=== PATIENT | female | born 1945 | race Caucasian/White ===

== ENCOUNTER 2017-12-09 08:30 | Outpatient (RCR) | payer MEDICARE, SELFPAY ==
--- NOTE | 2017-09-28 11:05 | HP.PTEVAL_ITS ---
Patient's Visit Information AODLFO RUSSELL is a 72 year old F referred to Physical Therapy by Roni Jay DO with a diagnosis of SPINAL STENOSIS OF LUMBAR REGION. S/P HEMILAMINECTOMY L1L2 ROCK 09/02/17. Date of Evaluation: 09/28/17 Physical Therapist: Thais Hdez - Visit Plan Frequency: 2-3x /Week Duration: 4-6 Weeks Plan: POSTURE CORRECTION/STRENGTHENING, INSTRUCTION IN APPROPRIATE BODY MECHANICS AND ACTIVITY MODIFICATIONS. DLS STARTING WITH A NEUTRAL SPINE AND THEN PROGRESSING ROM TOLERATED STARTING Oct PER DR. JEFFERS ORDER. ROCK LE ROM, STRETCHING AND STRENGTHENING. HEP INSTRUCTION. 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 SITTING. COMMUTE IS ABOUT 45 MINUTES. TENTATIVE RTW DATE DEC 02 2017. Disability: NO. Present symptoms: RIGHT LOW BACK PAIN. RIGHT THIGH NUMBNESS. TINGLING IN RIGHT TOES. Present since: CHRONIC. Pain Scale: WORST 3/10, LEAST 2/10. Currently: 2/10. Commenced as a result of: NO APPARENT REASON. Symptoms at onset: LOW BACK. Worse: COUGHING, TRYING TO DO SOMETHING I SHOULDN'T. DOING DISHES. COOKING BREAKFAST. PROLONGED STANDING. TRYING TO MAKE BED. Better: ICING. TYLONOL. Disturbed sleep: NO. Previous history/Previous treatment: CHEYANNE'S X 3. NO PT. NO CHIRO. NO PRIOR SURGERY ON BACK - THIS IS THE FIRST ONE. Coughing/sneezing/straining: POSITIVE. Gait: PATIENT REPORTS SHE IS VERY APPREHENSIVE WALKING. STATES SHE WANTS TO WALK BY HERSELF BUT SHE CAN'T. STATES SHE IS NOT SECURE ENOUGH TO WALK ALONE. HAS A WALKER BUT BROUGHT CANE TODAY BECAUSE TRYING TO NOT USE THE WALKER. STATES HER THINKS SHE IS FAVORING HER RIGHT LEG. Difficulty initiating urinatin: NO. Accidents: NO. Unexplained weight loss: NO. Imaging: X-RAYS AT FOLLOW UP AND THEY SAID EVERYTHING LOOKS GOOD NOW. PMH: HTN. BREAST CANCER 1994 AND 2003. UTERINE CANCER 2011. HAS HAD CHEMO AND RADIATION TREATMENTS IN THE PAST. Recent major surgery: DOUBLE MASECTOMY, HYSTERECTOMY, LEFT TKR. OTHER: MOSTLY ONLY WEARING BRACE IF WALKING A LOT. - Objective Sitting/Standing Posture: POOR. Lordosis: REDUCED. Active Correction of posture: BETTER. Other Observations: INDEP GAIT INTO PT WITH A STRAIGHT CANE X APPROX 20 FEET WITH DIFFICULTY. DIFFICULTY TRANSITIONING FROM SIT TO STAND AND INITIATING GAIT AFTER SITTING. SHE WALKS WITH INCREASED TRUNK FLEX, DECREASED ROCK STRIDE LENGTH AND A MILD LIMP ON THE RIGHT LE. BROUGHT PATIENT THE 300 FEET TO THE TREATMENT ROOM BACK IN A WHEELCHAIR AT HER REQUEST. SHE ALSO REQUESTED A W/C RIDE BACK OUT TO THE LOBBY AFTER EVAL. Motor deficit: R LE WEKNESS > LLE. RIGHT HIP FLEX 3+/5, KNEE EXT 3-/5, KNEE FLEX 4/5 AND ANKLE DORSI FLEXION 5/5. LEFT HIP FLEX 4/5, KNEE EXT 4/5, KNEE FLEX 4/5, ANKLE DORSIFLEX 5/5. Sensory deficit: ROCK LE LIGHT TOUCH SENSATION INTACT AND SYMMETRICAL. ROM deficit: TIGHT ROCK LE HS'S AND HIP FLEXORS. PATIENT DOES NOT HAVE FULL RIGHT KNEE EXTENSION AND IS WALKING ON A BENT KNEE. STATES SHE NEEDS HER RIGHT KNEE REPLACED TOO. Dural Signs: NT. Lumbar mvmt loss: NT. Core strength: POOR. INCISION - VERY SMALL OPEN AREA AT THE VERY TOP OF INCISION WITH VERY MIN DRAINAGE. PATIENT IS AWARE AND STATES PA AT DR. JEFFERS OFFICE IS AWARE. THERE IS A LITTLE BIT OF REDNESS AROUND INCISION BUT OTHERWISE LOOKS GOOD. OTHER: PATIENT IS VERY PLEASANT AND COOOPERATIVE TO WORK WITH. FOLLOWS ALL COMMANDS WELL. - Goals Goal 1:: DECREASE C/O BACK AND RIGHT LE SX'S. Goal Time Frame: 4-6 Weeks Goal 2:: IMPROVE PERSONAL CARE, LIFTING, WALKING, STANDING, TRAVEL AND HOMEMAKING FUNCTION. Goal Time Frame: 4-6 Weeks Goal 3:: INSTRUCT IN PROPHYLAXIS Goal Time Frame: 4-6 Weeks - Rehabilitation Potential Rehabilitation Potential: Fair - Anticipated Interventions Patient/Client Instruction: Educate patient on: Condition, Plan of Care, Risk Factors, Benefits of Fitness Program For the Purpose of:: To improve self management Therapeutic Exercise to Include: Strength training, Body mechanics, Postural training, Flexibilty training, Gait and locomotor training, Active ROM, Dynamic Lumbar Stabilization For the Purpose of:: To decrease pain, To improve muscle performance and motor function, To increase tolerance to activity/condition/position, To improve ability of physical actions for home/community/work/leisure, To improve gait and locomotor functions Cryotherapy (ice pack, ice massage): Yes For the Purpose of:: To decrease pain, To decrease swelling/inflammation Thank you for the opportunity to evaluate your patient. For Medicare and Medicare HMO plans, please review the plan of care and approve it. It will need to be FAXED BACK to us at [phone] for Medicare purposes. Please let me know if there are questions or concerns regarding this plan of care. Physician Signature: Date:
--- NOTE | 2017-11-07 14:09 | HP.PTREVAL_ITS ---
CASE VOSS, It has been my pleasure to treat ADOLFO RUSSELL over the last 10 visits for SPINAL STENOSIS OF LUMBAR REGION. S/P HEMILAMINECTOMY L1L2 ROCK 09/02/17. Please see the progress note below for an update on the physical therapy plan of care! Subjective: PATIENT REPORTS SHE DOES NOT HAVE THE PAIN DOWN HER LEG ANYMORE BUT SOME RIGHT KNEE PAIN WHICH SHE RELATES TO ALMOST NEEDING A KNEE REPLACEMENT. THE PAIN SHE WAS HAVING IN HER BACK HAS LESSEND A LOT. PATIENT REPORTS HER WALKING IS BETTER BUT STILL USING THE CANE TO STEADY HERSELF AT TIMES OUTSIDE THE HOME. NOT USING CANE AT HOME. NO PROBLEM SLEEPING NOW. FOLLOW UP WITH DR. ROLLINS 11/10/17. PATIENT REPORTS SHE IS DOING HER HEP AND IT IS CHALLENGING. RIGHT LOW BACK PAIN UP TO 2-3 AT ITS WORST NOW AND ONLY IF SHE DOES TOO MUCH. STATES SHE GETS REALLY TIRED IF SHE TRIES TO DO TOO MUCH LIKE GROCERY SHOPPING ALONG WITH THERAPY. GROCERY SHOPPING AT [facility] IS STILL HARD DUE TO THE DISTANCE SHE HAS TO WALK AND TRYING TO GET STUFF FROM TOP AND BOTTOM SHELVES. Objective/Function: PATIENT HAS MADE GREAT PROGRESS TOWARD ALL PT GOALS BUT STILL HAS SIGNIFICANT CORE WEAKNESS. SHE IS A GOOD CANDIDATE TO CONTINUE FORMAL PT BASED ON THE PROGRESS SHE HAD MADE AND ROOM FOR FURHTER IMPROVEMENT. THIS PATIENT AMBULATES INDEP'LY INTO PT TODAY WITH VERY LITTLE DEPENDENCE ON A STRAIGHT CANE X > 300 FEET. SHE STILL WALKS WITH DECREASED CADANCE BUT THIS HAS IMPROVED. SHE DEMO'S INDEP GAIT WITHOUT THE CANE ALSO AND THIS DECREASES HER CADANCE FURTHER BUT SHE IS ABLE TO DO IT X > 50 FEET WITH ONLY MILD LIMPING ON BENT RIGHT KNEE AND NO C/O PAIN. Motor deficit: R LE WEKNESS > LLE. RIGHT HIP FLEX 4-/5, KNEE EXT 3-/5, KNEE FLEX 4/5 AND ANKLE DORSI FLEXION 5/5. LEFT HIP FLEX 4+/5, KNEE EXT 5/5, KNEE FLEX 5/5, ANKLE DORSIFLEX 5/5. Sensory deficit: ROCK LE LIGHT TOUCH SENSATION INTACT AND SYMMETRICAL. ROM deficit: PATIENT STILL DOES NOT HAVE FULL RIGHT KNEE EXTENSION AND IS WALKING ON A BENT KNEE. STATES SHE NEEDS HER RIGHT KNEE REPLACED TOO. RIGHT KNEE WITH -20 DEG EXTENSION. Lumbar mvmt loss: NT IN STANDING BUT FLEX IN LYING - MIN AND ROCK TRUNK ROTATION - MIN. HOLD ROM TESTING IN STANDING PENDING FOLLOW UP WITH DR. RIA RAMIREZ. Core strength: POOR. INCISION - LOOKS GOOD WITHOUT ANY OPEN AREAS OR SIGNS OF INFECTION. OTHER: PATIENT IS VERY PLEASANT AND COOOPERATIVE TO WORK WITH. FOLLOWS ALL COMMANDS WELL. COMMUNICATES A GOOD UNDERSTANDING OF HOME INSTRUCTIONS WITH MIN CUEING STILL NEEDED FOR PROPER BODY MECHANICS. REHAB PARTIALLY LIMITED BY RIGHT KNEE. LUMBAR OSWESTRY HAS IMPROVED FROM 20 TO 14. Plan Plan: RECOMMEND CONTINUED PT PER ORIGINAL POC 2-3 TIMES A WEEK X 4-6 WEEKS TO HELP PATIENT WITH SUCCESSFUL RETURN TO WORK. PATIENT IS AGREEABLE. Goals Goal 1:: DECREASE C/O BACK AND RIGHT LE SX'S. Goal Time Frame: 4-6 Weeks Goal Progress: Progressing Goal 2:: IMPROVE PERSONAL CARE, LIFTING, WALKING, STANDING, TRAVEL AND HOMEMAKING FUNCTION. Goal Time Frame: 4-6 Weeks Goal Progress: Progressing Goal 3:: INSTRUCT IN PROPHYLAXIS Goal Time Frame: 4-6 Weeks Goal Progress: Progressing Anticipated Interventions Patient/Client Instruction: Educate patient on: Condition, Plan of Care, Risk Factors, Benefits of Fitness Program For the Purpose of:: To improve self management Therapeutic Exercise to Include: Strength training, Body mechanics, Postural training, Flexibilty training, Gait and locomotor training, Active ROM, Dynamic Lumbar Stabilization For the Purpose of:: To decrease pain, To improve muscle performance and motor function, To increase tolerance to activity/condition/position, To improve ability of physical actions for home/community/work/leisure, To improve gait and locomotor functions Cryotherapy (ice pack, ice massage): Yes For the Purpose of:: To decrease pain, To decrease swelling/inflammation Please do not hesitate to contact me at [phone] by phone or Fax: if you have questions or concerns regarding this new plan of care! Sincerely, Thais Hdez
--- NOTE | 2017-12-09 09:31 | HP.PTDCSUM_ITS ---
HP - PT D/C Summary It has been my pleasure to treat ADOLFO RUSSELL under orders from CASE VOSS, for the diagnosis of SPINAL STENOSIS OF LUMBAR REGION. S/P HEMILAMINECTOMY L1L2 ROCK 09/02/17 for a total of 22 visit(s). Discharge Date: Please see the following information for a summary of their discharge status. - Subjective Subjective: PATIENT REPORTS SHE IS A LOT BETTER. ONLY TAKING THE CANE WITH HER ABOUT 10% OF THE TIME NOW AND ONLY IF SHE IS GOING TO WALK FAR DISTANCES. PATEINT REPORTS SHE REALLY CAN'T REMEMBER THE LAST TIME SHE HAD MORE THAN 1/10 PAIN IN HER BACK BUT HER RIGHT KNEE DOES GET MORE PAINFUL AND SHE KNOWS SHE WILL NEED A KNEE REPLACEMENT AT SOME POINT. 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 PATIENT REPORTS SHE IS EVEN HAPPY TO BE ABLE TO MAKE THE BED WITHOUT DIFFICULTY NOW. PATIENT REPORTS SHE IS BACK TO BEING ABLE TO DO HER NORMAL ACTIVITIES OR EVEN MORE NOW. PATIENT REPORTS SHE IS HOPING TO BE ABLE TO BE DISCHARGED TODAY. - Pain RIGHT LOW BACK Pain Intensity (Out of 10): 1 - Overall Improvement % Improvement: 95 - Objective Objective/Function: ALL GOALS MET. THIS PATIENT DEMONSTRATES INDEP GAIT TODAY WITHOUT CANE (ALTHOUGH DID BRING CANE) WITH GOOD BALANCE, FAIR CADANCE, NO LOB BUT MILD LIMP ON RIGHT LE DUE TO RIGHT KNEE DECREASED STRENGTH AND ROM. SHE STILL WALKS WITH GUARDING AND DECREASED CADANCE BUT THIS HAS IMPROVED. Motor deficit: R LE WEKNESS > LLE. RIGHT HIP FLEX 4/5, KNEE EXT 3-/5, KNEE FLEX 4/5 AND ANKLE DORSI FLEXION 5/5. LEFT HIP FLEX 4+/5, KNEE EXT 5/5, KNEE FLEX 5/5, ANKLE DORSIFLEX 5/5. Sensory deficit: ROCK LE LIGHT TOUCH SENSATION INTACT AND SYMMETRICAL. ROM deficit: PATIENT STILL DOES NOT HAVE FULL RIGHT KNEE EXTENSION AND IS WALKING ON A BENT KNEE. STATES SHE NEEDS HER RIGHT KNEE REPLACED TOO. RIGHT KNEE WITH -14 DEG EXTENSION TO 98 DEG FLEX TODAY. Lumbar mvmt loss: FLEX - MIN, EXT - CHINO, RIGHT SG - CHINO, LEFT SG - MOD. PATIENT DENIES PAIN WITH LUMBAR ROM TESTING ALL PLANES. Core strength: POOR BUT IMPROVING W ITH PRE ALLOWING HER TO DEMONSTRATE INCREASED PROPER POSTURE CONTROL ACTIVELY DEMONSTRATED THROUGHOUT MOST OF SESSION TODAY. OTHER: PATIENT IS VERY PLEASANT AND COOOPERATIVE TO WORK WITH. FOLLOWS ALL COMMANDS WELL. COMMUNICATES A GOOD UNDERSTANDING OF HOME INSTRUCTIONS. REHAB PARTIALLY LIMITED BY RIGHT KNEE. LUMBAR OSWESTRY HAS IMPROVED FROM 20 TO 14 AND NOW 0. RIGHT KNEE IS STILL SWOLLEN AND PATIENT REPORTS IT HAS BEEN THIS WAY FOR ABOUT ABOUT A YEAR. - Goals Goal 1:: DECREASE C/O BACK AND RIGHT LE SX'S. Goal Progress: Goal Met Goal 2:: IMPROVE PERSONAL CARE, LIFTING, WALKING, STANDING, TRAVEL AND HOMEMAKING FUNCTION. Goal Progress: Goal Met Goal 3:: INSTRUCT IN PROPHYLAXIS Goal Progress: Goal Met - Plan Plan: D/C TO INDEP HEP. PATIENT IS AGREEABLE. WHEN SHE RETIRES NEXT MONTH SHE ALSO PLANS TO JOIN [employer] HERE AT [place]. - D/C Information If there are questions or concerns regarding this patient's physical therapy, please feel free to call me at [phone]. Thank you for the referral of this patient. Sincerely, Thais Hdez
== END 2017-12-09 19:00 | disposition home or self-care (01) ==
LOC: PT 08:30
PROVIDERS: Family Provider Family Medicine; PCP Family Medicine
DX: M48.061 Spinal stenosis, lumbar region without neurogenic claudication (principal)
CPT/HCPCS: 97110; 97113; 97162; 97164; 97530

== ENCOUNTER 2019-01-02 10:00 | Outpatient (RCR) | payer MEDICARE, SELFPAY ==
--- NOTE | 2018-11-09 13:39 | HP.PTEVAL_ITS ---
Patient's Visit Information ADOLFO RUSSELL is a 73 year old F referred to Physical Therapy by Roni Jay DO with a diagnosis of SACRAL DYSFUNCTION. Date of Evaluation: 11/09/18 Physical Therapist: Thais Hdez PT, Cert MDT - Visit Plan Frequency: 2-3x /Week Duration: 4-6 Weeks Plan: AQUATIC THERAPY FOR PAIN RELEIF, POSTURE CORRECTION/STRENGTHENING, INSTRUCTION IN APPROPRIATE BODY MECHANICS AND ACTIVITY MODIFICATIONS. DLS STARTING WITH A NEUTRAL SPINE PROGRESSING ROM TOLERATED. ROCK LE ROM, STRETCHING AND STRENGTHENING. HEP INSTRUCTION. - Subjective Findings: Work/Leisure: RETIRED. Disability: NO. Present symptoms: LOW BACK PAIN. RIGHT KNEE PAIN - CORTISONE SHOT TUESDAY OR TUESDAY THIS WEEK WHICH HAS HELPED. Present since: ABOUT A YEAR AGO SHORTLY AFTER LOW BACK SURGERY IN AUGUST 2017. Pain Scale: WORST 4/10, LEAST 2/10. Currently: 2/10 - PAIN HAS BEEN WORSENING THEREFORE HAS BEEN BACK TO SEE DR. JAY TWICE SINCE BEING RELEASED FROM BACK SURGERY. Commenced as a result of: NO APPARENT REASON. Symptoms at onset: SAME. Worse: STANDING, WALKING, DOING ANYTHING PHYSICAL AROUND THE HOUSE, LYING ON EITHER SIDE. Better: HEAT. Disturbed sleep: YES - PATIENT IS A SIDE SLEEPER AND IT HURTS TO LIE ON EITHER SIDE. Previous history/Previous treatment: ONE BACK SURGERY AUGUST 2017 PRECEEDED BY AND FOLLOWED BY PHYSICAL THERAPY AND PATIENT REPORTS WATER THERAPY AFTER SX REALLY HELPING. CHEYANNE'S IN BACK BEFORE SURGERY WITH TEMPORARY RELIEF. Coughing/sneezing/straining: NEGATIVE. Gait: INDEP GAIT BUT CAUTIOUS AND USES CANE. PATIENT REPORTS SHE DOESN'T USE THE CANE AROUND THE HOUSE BUT OUTSIDE SHE DOES. Difficulty initiating urinatin: NO. Accidents: NO. Unexplained weight loss: NO. Imaging: RECENT LUMBAR X- RAY - SHOW GOOD HEALING PER PATIENT REPORT. PMH: ARTHRITIS, HTN, OSTEOPOROSIS. Recent major surgery: LEFT TKR ABOUT 4 YEARS AGO. OTHER: PATIENT REPORTS SHE HAD TO WEAR A BONE STIMULATOR FOR ABOUT 3 MONTHS AND NOW HER BONES ARE FUSED. - Objective Sitting/Standing Posture: POOR. Lordosis: REDUCED. Lateral shift: YES - LEFT. Active Correction of posture: BETTER. Other Observations: INDEP GAIT INTO PT WITH A STRAIGHT CANE WITH GOOD BALANCE BUT MILD LIMP ON RIGHT LE. MILD INCREASED TRUNK FLEXION. Motor deficit: ROCK LE'S 5/5 WITH MMT'ING EXCEPT ROCK HIPS 4-/5, RIGHT KNEE EXT 3-/5, KNEE FLEX 3-/5. Sensory deficit: ROCK LE LIGHT TOUCH SENSATION INTACT AND SYMMETRICAL. ROM DEFICIT: TIGHT ROCK LE HIP FLEXORS, HS'S AND GASTROC SOLEUS COMPLEX'S. MINUS 12 DEG EXT TO 100 DEG FLEXION RIGHT KNEE IN SUPINE WITH A HEEL SLIDE. TIGHT ROCK HIP INTERNAL ROTATORS AND TESTING CAUSES LBP. LYING FLAT ON BACK TO MEASURE RIGHT KNEE ROM ALSO INCREASES C/O LOW BACK PAIN. Reflexes: NT. Dural Signs: NEGATIVE ROCK LE'S. Lumbar mvmt loss: flex - MOD. ext - CHINO. R SG - CHINO. L SG - MOD. PATIENT C/0 INCREASED LOW BACK PAIN WITH LUMBAR ROM TESTING ALL PLANES. Core strength: POOR. Palpation: MILD TENDERNESS WITH PALPATION OF THE LUMBOSACRAL REGIONS. OTHER: PATIENT HAS A [employer] MEMBERSHIP BUT HAS NOT USED IT IN QUITE SOME TIME PER PATIENT REPORT. - Goals Goal 1:: DECREASE C/O LOW BACK PAIN Goal Time Frame: 4-6 Weeks Goal 2:: IMPROVE LIFTING, WALKING, STADNING, SOCIAL LIFE, TRAVEL AND HOMEMAKING FUNCTION. Goal Time Frame: 4-6 Weeks Goal 3:: INSTRUCT IN PROPHYLAXIS Goal Time Frame: 4-6 Weeks - Rehabilitation Potential Rehabilitation Potential: Fair - Anticipated Interventions Patient/Client Instruction: Educate patient on: Condition, Plan of Care, Risk Factors, Benefits of Fitness Program For the Purpose of:: To improve self management Therapeutic Exercise to Include: Strength training, Body mechanics, Postural training, Flexibilty training, In an aquatic setting, Dynamic Lumbar Stabilization For the Purpose of:: To decrease pain, To increase ROM, To improve muscle performance and motor function, To increase tolerance to activity/condition/position, To improve ability of physical actions for home/community/work/leisure, To improve gait and locomotor functions Thank you for the opportunity to evaluate your patient. For Medicare and Medicare HMO plans, please review the plan of care and approve it. It will need to be FAXED BACK to us at [phone] for Medicare purposes. For Medicare only, by signing this I certify the plan of care. Please let me know if there are questions or concerns regarding this plan of care. Physician Signature: Date:
--- NOTE | 2019-01-02 10:43 | HP.PTDCSUM_ITS ---
HP - PT D/C Summary It has been my pleasure to treat ADOLFO RUSSELL under orders from Roni Jay DO, for the diagnosis of SACRAL DYSFUNCTION for a total of 10 visit(s). Discharge Date: Please see the following information for a summary of their discharge status. - Subjective Subjective: PATIENT REPORTS SHE IS DOING BETTER AND FEELS READY TO CONTINUE WATER EX ON HER OWN NOW. I DON'T HAVE THE PAIN IN MY LOW BACK LIKE I DID. KATIEN REPORTS SHE DOES STILL HAVE BACK PAIN BUT IT IS MUCH MORE TOLERABLE. PATIENT REPORTS SHE IS NOW ABLE TO SIDE SLEEP AND SHE COULDN'T BEFORE HAVING THERAPY. RIGHT KNEE INJECTION 2 MONTHS AGO - TEMPROARY RELIEF. CONSIDERING TKR NEXT YEAR ON RIGHT. STATES SHE ONLY USES CANE IN COMMUNITY. PATIENT REPORTS THAT JUST BEING ABLE TO DO THINGS AROUND THE HOUSE IS BETTER TOO SINCE STARTING PHYSICAL THERAPY. - Pain Lumbar Spine Pain Intensity (Out of 10): 2 R knee Pain Intensity (Out of 10): 3 - Overall Improvement % Improvement: 40 - Objective Objective/Function: INDEP GAIT INTO PT WITH A STRAIGHT CANE WITH GOOD BALANCE BUT MILD LIMP ON RIGHT LE. MILD INCREASED TRUNK FLEXION. Motor deficit: ROCK LE'S 5/5 WITH MMT'ING EXCEPT ROCK HIPS 4-/5, RIGHT KNEE EXT 3+/5, KNEE FLEX 3+/5. Sensory deficit: ROCK LE LIGHT TOUCH SENSATION INTACT AND SYMMETRICAL. ROM DEFICIT: TIGHT ROCK LE HIP FLEXORS, HS'S AND GASTROC SOLEUS COMPLEX'S. MINUS 10 DEG EXT TO 109 DEG FLEXION RIGHT KNEE IN SUPINE WITH A HEEL SLIDE. TIGHT ROCK HIP INTERNAL ROTATORS AND TESTING CAUSES LBP. LYING FLAT ON BACK TO MEASURE RIGHT K NEE ROM ALSO INCREASES C/O LOW BACK PAIN. Reflexes: NT. Dural Signs: NEGATIVE ROCK LE'S. Lumbar mvmt loss: flex - MIN. ext - CHINO. R SG - CHINO. L SG - MOD. PATIENT C/0 INCREASED LOW BACK PAIN WITH LUMBAR ROM TESTING ALL PLANES. Core strength: POOR. Palpation: MILD TENDERNESS WITH PALPATION OF THE LUMBOSACRAL REGIONS. OTHER: PATIENT HAS A [employer] MEMBERSHIP THAT SHE PLANS TO USE HERE AT TO CONTINUE INDEP WATER EX. - Goals Goal 1:: DECREASE C/O LOW BACK PAIN Goal Progress: Goal Met Goal 2:: IMPROVE LIFTING, WALKING, STADNING, SOCIAL LIFE, TRAVEL AND HOMEMAKING FUNCTION. Goal Progress: Goal Met Goal 3:: INSTRUCT IN PROPHYLAXIS Goal Progress: Goal Met - Plan Plan: D/C TO INDEP WATER EX PROGRAM AND FOLLOW UP WITH DR. JAY - D/C Information If there are questions or concerns regarding this patient's physical therapy, please feel free to call me at [phone]. Thank you for the referral of this patient. Sincerely, Thais Hdez, PT, Cert MDT
== END 2019-01-02 19:00 | disposition home or self-care (01) ==
LOC: PT 10:00
PROVIDERS: Family Provider Family Medicine; PCP Family Medicine; Referring Provider Orthopaedic Surgery; Visit Provider Orthopaedic Surgery
DX: M53.3 Sacrococcygeal disorders, not elsewhere classified (principal)
CPT/HCPCS: 97113; 97162; 97530

== ENCOUNTER 2020-04-14 14:29 | Outpatient (RCR) | payer MEDICARE, SELFPAY | END 2020-04-14 23:59 | LOC: IMMUN 14:29 | PROVIDERS: PCP Family Medicine; Visit Provider Family Medicine | DX: Z23 Encounter for immunization (principal) | CPT/HCPCS: 0011A; 0012A ==